=== PATIENT | female | born 1960 | race Caucasian/White ===

== ENCOUNTER 2020-08-04 04:55 | Emergency (ER) | payer BC, OTHER, SELFPAY ==
--- NOTE | ~2020-08-04 | XR_ITS ---
XR chest 1V portable DATE: 08/04/2020 06:27 INDICATION: Cough. Painful urination and constipation. TECHNIQUE: Portable AP chest on 07/27/2020 at 0609 hours COMPARISON: 06/22/2004 PA and lateral chest FINDINGS: Normal heart size. No hilar or mediastinal enlargement. There is suggestion of mild patchy infiltrate in the right lower lung; otherwise no pulmonary infiltr ate or consolidation, pleural effusion or pulmonary vascular congestion or pneumothorax is detected. IMPRESSION: Mild patchy infiltrate in the right lower lung Reviewed, dictated and finalized at location A. CUTTER OPERATOR
[2020-08-04 04:59] VITALS: BP 156/87; PULSE 103; RESP 18; TEMP 37.1; O2SAT 96
[2020-08-04 05:35] LABS: Glucose Point of Care 327 (65-105)
[2020-08-04] MEDS: ONDANSETRON INJ 4 MG/2 ML VIAL IV PUSH (05:37)
[2020-08-04 05:59] LABS: Basophils Percent Auto 0.5 % (0.2-1.2); Eosinophils Percent Auto 0.3 % (0-4.4); Hematocrit 41.4 % (37.0-47.0); Hemoglobin 14.4 g/dL (12.0-15.0); Immature Granulocyte Absolute 0.03 K/mm3 (0.00-0.031); Immature Granulocyte Percent A 0.4 % (0-0.5); Immature Platelet Fraction Pct 7.2 % (0.9-11.2); Lymphocytes Percent Auto 17.2 % (18.3-44.2); Mean Corpuscular HGB Conc 34.8 g/dl (32-36); Mean Corpuscular Hemoglobin 28.5 pg (26-34); Mean Corpuscular Volume 81.8 fl (80-100); Monocytes Absolute Auto 0.8 K/mm3 (0.1-0.6); Monocytes Percent Auto 10.6 % (2.6-8.5); Neutrophils Absolute Auto 5.4 K/mm3 (1.3-6.7); Platelet Count Result 151 k/mm3 (150-375); Red Blood Count 5.06 M/mm3 (4.2-5.4); Red Cell Distribution Width 12.6 % (11.5-14.5); White Blood Count 7.5 K/mm3 (4.5-10.0)
--- NOTE | 2020-08-04 06:01 | ECG_ITS ---
Measurements Intervals [place] Rate: 93 P: 45 VT: 121 QRS: 42 QRSD: 85 T: 53 QT: 343 QTc: 428 Interpretive Statements SINUS RHYTHM BASELINE ARTIFACT- I, II, AVR, AVL NORMAL ECG Electronically Signed On 08-04-2020 7:53:17 WOOD CRAFTER by Joselo Jules D.O.
[2020-08-04 06:02] VITALS: PULSE 91
[2020-08-04 06:06] LABS: Add Urine Microscopic? YES; Appearance Urine Cloudy (Clear); Bacteria Urine Trace /hpf; Bilirubin Urine Negative (Negative); Blood Urine 1+ (Negative); Color Urine Yellow (Yellow); Glucose Urine UA 3+ mg/dL (Negative); Ketones Urine 1+ mg/dL (Negative); Leukocyte Esterase Ur 2+ LEU/UL (Negative); Mucus Urine Rare /lpf; Nitrate Urine Negative (Negative); Protein Urine 1+ mg/dL (Negative); RBC Urine 0-2 /hpf (0-2); Specific Grav Ur 1.013 (1.001-1.035); Squamous Epithelial Cell Urine Moderate /hpf (Few); Urobilinogen Urine Negative mg/dL (<2.0); WBC Urine >75 /hpf
[2020-08-04 06:09] LABS: INR 0.9; Partial Thromboplastin Time 29.4 SECONDS (22.3-36.8); Prothrombin Time 13.1 Seconds (11.1-14.7)
[2020-08-04] MEDS: SODIUM CHLORIDE 0.9% IV 1,000 ML 999 ML IV CONT (06:09)
--- NOTE | 2020-08-04 06:11 | ED.GENADULT ---
HPI - General Adult General Chief complaint: Unspecified Stated complaint: multiple complaints Time Seen by Provider: 08/04/20 05:14 History of Present Illness HPI narrative: Patient is a 60-year-old female who presents the emergency department with chief complaint of generalized malaise. Patient reports he had an urgent care facility and had a urinalysis that showed that she had significant glucose in her urine did not do an Accu-Chek and told her she should probably be evaluated in the emergency department. Patient states that she has had generalized body aches states that she has had decreased appetite denies chest pain denies shortness of breath denies abdominal pain vomiting or diarrhea. Related Data Home Medications Medication Instructions Recorded Confirmed albuterol sulfate INHALATION 08/04/20 Allergies Allergy/AdvReac Type Severity Reaction Status Date / Time No Known Allergies Allergy Verified 08/04/20 05:03 Review of Systems Review of Systems: Narrative: CONSTITUTIONAL: Denies fever, chills, or sweats. EYES: Denies visual changes, redness, or discharge. ENT: Denies rhinorrhea, congestion, sore throat, or otalgia. CARDIOVASCULAR: Denies chest pain, palpitations, or edema. RESPIRATORY: Denies cough or dyspnea. GASTROINTESTINAL: Denies abdominal pain, nausea, vomiting, or diarrhea. GENITOURINARY: Denies dysuria or hematuria. SKIN: Denies rash or itching. MUSCULOSKELETAL: Denies back pain, joint pain, or myalgia. NEUROLOGIC: Denies headache, numbness, or weakness. PSYCHIATRIC: Denies anxiety or depression. A 10 system review of systems was completed on the patient and is negative except for what is stated in the HPI. Nursing and ancillary documentation was reviewed. PMFSH Comments Patient reports no significant past medical history Social history patient denies illicit drug use Exam Narrative: Exam Narrative: GENERAL: Well-appearing, well-nourished, and in no acute distress. HEAD: Normocephalic, atraumatic. EYES: PERRLA and EOMI. ENT: Nares clear, no rhinorrhea or epistaxis. Mucous membranes moist. NECK: Supple. CHEST: Clear to auscultation. No respiratory distress. HEART: Regular rate and rhythm. No murmur heard. Normal peripheral pulses. ABDOMEN: Soft, nontender, nondistended, normal active bowel sounds. EXTREMITIES: Normal range of motion. No edema. SKIN: Warm, dry, no rash. NEURO: No focal deficits. Alert and oriented x3. PSYCH: Normal mood and affect. Course Course Emergency Course: Patient's blood sugar came down to the 200s. Patient does have a urinary tract infection the patient was started on oral antibiotics and also started on Metformin. Patient will be referred to a primary care physician as she currently does not have a normal primary doctor. Vital Signs Vital signs: Vital Signs Temperature 37.1 C 08/04/20 04:59 Pulse Rate 103 H 08/04/20 04:59 Respiratory Rate 18 08/04/20 04:59 Blood Pressure 156/87 H 08/04/20 04:59 Pulse Oximetry 96 08/04/20 04:59 Temperature 37.1 C 08/04/20 04:59 Pulse Rate 92 08/04/20 06:47 Respiratory Rate 25 H 08/04/20 06:47 Blood Pressure 162/73 H 08/04/20 06:47 Pulse Oximetry 98 08/04/20 06:47 Medical Decision Making Vital Signs Vital Signs: Vital Signs Temperature 37.1 C 08/04/20 04:59 Pulse Rate 103 H 08/04/20 04:59 Respiratory Rate 18 08/04/20 04:59 Blood Pressure 156/87 H 08/04/20 04:59 Pulse Oximetry 96 08/04/20 04:59 Temperature 37.1 C 08/04/20 04:59 Pulse Rate 92 08/04/20 06:47 Respiratory Rate 25 H 08/04/20 06:47 Blood Pressure 162/73 H 08/04/20 06:47 Pulse Oximetry 98 08/04/20 06:47 Lab Data Result diagrams: 08/04/20 05:43 08/04/20 05:43 Labs: Lab Results 08/04/20 08/04/20 08/04/20 Range/Units 05:30 05:43 05:43 WBC 7.5 (4.5-10.0) K/mm3 RBC 5.06 (4.2-5.4) M/mm3 Hgb 14.4 (12.0-15.0) g/dL Hct 41.4 (37.0-47.0
[2020-08-04 06:18] LABS: Alanine Aminotransferase 21 U/L (4-35); Albumin Level 3.8 g/dL (3.5-5.1); Alkaline Phosphatase 136 U/L (38-126); Anion Gap 8 mmol/L (8-16); Aspartate Amino Transferase 27 U/L (14-36); Bilirubin,Total 0.9 mg/dL (0.2-1.3); Blood Urea Nitrogen 13 mg/dL (7-17); Calcium 9.1 mg/dL (8.4-10.2); Carbon Dioxide 31 mmol/L (22-30); Chloride 95 mmol/L (98-107); Estimated CRCL calculation 138 ml/min; Estimated Glomerular Filt Rate > 60; Glucose 325 mg/dL (65-105); Lipase 30 U/L (23-300); Potassium 4.2 mmol/L (3.4-5.0); Sodium 134 mmol/L (137-145)
--- NOTE | 2020-08-04 06:18 | PC.NURSE ---
Alessia @ [facility] alerted of pt . Will be at the hospital shortly to evaluate pt.
[2020-08-04 06:30] LABS: Troponin I 0.017 ng/mL (0.000-0.034)
[2020-08-04 06:47] VITALS: BP 158/78; BP 162/73; PULSE 88; PULSE 92; RESP 17; RESP 25; O2SAT 97; O2SAT 98
[2020-08-04 06:47] LABS: Glucose Point of Care 274 (65-105)
== END 2020-08-04 07:05 | disposition home or self-care (01) ==
PROVIDERS: Emergency Provider Emergency Medicine
DX: R73.9 Hyperglycemia, unspecified (principal); N30.00 Acute cystitis without hematuria
CPT/HCPCS: 36415; 71045; 80053; 81001; 82948; 83690; 84484; 85025; 85055; 85610; 85730; 87077; 87086; 87088; 87186; 93005; 96361; 96374; 99284; J2405; J7030

== ENCOUNTER → 2020-11-02 13:51 | Outpatient (CLI) | payer BC, OTHER, SELFPAY ==
--- NOTE | ~2020-11-02 | MM_ITS ---
EXAMINATION: MM screening mitul BI w rafia HISTORY: Screening mammogram TECHNIQUE: Craniocaudal and mediolateral oblique 3-D tomosynthesis images were obtained and synthetic 2-D images were generated. CAD analysis was submitted and interpreted. COMPARISON: No prior mammogram is available for comparison at this institution. BREAST PARENCHYMAL COMPOSITION: There are scattered areas of fibroglandular density. FINDINGS: There is no evidence of suspicious mass, calcification, or architectural distortion to sugg est malignancy in either breast. There has been no suspicious interval change. IMPRESSION: 1. No mammographic evidence of malignancy. 2. Recommend routine screening mammography in one year. BI-RADS Category 1: Negative Reviewed, dictated and finalized at location A. [employer]
== END ==
PROVIDERS: Visit Provider Emergency Medicine
DX: Z12.31 Encounter for screening mammogram for malignant neoplasm of breast (principal)
CPT/HCPCS: 77063; 77067

== ENCOUNTER 2020-11-06 07:34 | Outpatient (CLI) | payer BC, OTHER, SELFPAY ==
--- NOTE | ~2020-11-06 | US_ITS ---
EXAMINATION: US abdomen limited EXAM DATE: 11/06/2020 08:31 INDICATION: Elevated liver function tests. Cholecystectomy. TECHNIQUE: Multiple grayscale and Doppler images of the abdomen right upper quadrant were obtained (b y a technologist who performed the scan) and subsequently reviewed. Comparison is made to prior exami nation from 07/17/2004. FINDINGS: The pancreatic head and body are normal in appearance. The pancreatic tail is not visualized. The l iver has normal echogenicity and contour. There are no focal liver lesions identified. There is no evidence of intrahepatic biliary duct dilation. Portal venous flow was seen in the hepatopedal, nor mal direction and has normal Doppler waveform. No right-sided hydronephrosis. Common bile duct measures 5 mm, which is normal. The gallbladder fossa is unremarkable. IMPRESSION: 1. Unremarkable abdominal ultrasound exam. Reviewed, dictated and finalized at location A. CLOSER MECHANIC
--- NOTE | ~2020-11-06 | US_ITS ---
EXAMINATION: US art doppler w rickie FARIA EXAM DATE: 11/06/2020 08:24 INDICATION: Elevated liver enzymes, bilateral leg pain. TECHNIQUE: Segmental pressures and plethysmographic and Doppler waveforms of the brachial and lower e xtremity arteries were obtained. There is no prior study for comparison. FINDINGS: Right and left brachial artery pressures of 157 mm Hg and 164 mm Hg, respectively, are concordant (no rmal difference <= 30 mmHg). The right and left thigh-brachial pressure indices are could not obtain , 1.01, respectively (normal > 1.2). RIGHT LEG: The ankle-brachial index (SHAWNA) is 1.13 (normal >= 0.9-1). The great toe-brachial index (TBI) is 0.54 (normal >= 0.65). The lower extremity ratios, segmental pressure gradients as follows; Proximal superficial femoral artery:- Could not obtain ( mmHg). Distal superficial femoral artery: ----- Could not obtain ( mmHg). Popliteal: Could not obtain ( mmHg). Dorsalis pedis: 1.05 (172 mmHg). Posterior tibial: 1.13 (185 mmHg). (Normal gradients <= 20-30 mmHg between adjacent levels on the same leg or the same levels on the two legs). Arterial waveforms are biphasic. LEFT LEG: The ankle-brachial index (SHAWNA) is 1.04 (normal >= 0.9-1). The great toe-brachial index (TBI) is 0.44 (normal >= 0.65). The lower extremity ratios, segmental pressure gradients as follows; Proximal superficial femoral artery:- 1.01 (165 mmHg). Distal superficial femoral artery: ----- 1.13 (186 mmHg). Popliteal: Could not obtain ( mmHg). Dorsalis pedis: 0.82 (135 mmHg). Posterior tibial: 1.04 (171 mmHg). (Normal gradients <= 20-30 mmHg between adjacent levels on the same leg or the same levels on the two legs). Arterial waveforms are biphasic. IMPRESSION: 1. Right ankle-brachial index 1.13, normal. 2. Left ankle-brachial index 1.04, normal. 3. Segmental pressures as above. Reviewed, dictated and finalized at location A. AL SERVICES DIRECTOR
== END 2020-11-06 07:35 | disposition home or self-care (01) ==
LOC: ANHIMG 07:38
PROVIDERS: PCP Emergency Medicine; Visit Provider Emergency Medicine
DX: R74.01 Elevation of levels of liver transaminase levels (principal); M79.662 Pain in left lower leg; M79.661 Pain in right lower leg
CPT/HCPCS: 76705; 93923

== ENCOUNTER 2021-11-06 00:50 | Observation (INO) | payer BC, SELFPAY ==
[2021-11-06] VITALS (13 sets, daily range): BP systolic 91–160; BP diastolic 45–89; PULSE 73–115; RESP 16–22; TEMP 36.2–37.8; O2SAT 94–100
--- NOTE | ~2021-11-06 | XR_ITS ---
EXAMINATION: XR retrograde pyelo w/stent RT EXAM DATE: 11/06/2021 11:38 INDICATION: Right ureteral stent placement. Obstructive nephropathy. TECHNIQUE: Fluoroscopy used during XR retrograde pyelo w/stent RT performed by Dr. Mitchell Joyce MD, urologist. The radiologist Curtis Manrique M.D. dictating this report of the image(s) available wa s not present for the procedure. Total fluoroscopic time of 51 seconds. The DAP for this procedure was 0.83 mGym2. A total of 69 images sent to PACS from the exam. Cine run(s) available for review. Correlation is made to 11/06/2021. FINDINGS: Right distal ureteral stone was demonstrated on CT scan earlier today. Difficult to identi fy this on the mental health unit lead psychologist image, could be overlying the pubis. Right ureter was cannulated and injected. T here is moderate right-sided hydroureteronephrosis. A double-J ureteral stent was placed. Correlate with procedure note. Cholecystectomy clips. IMPRESSION: Fluoroscopy used during XR retrograde pyelo w/stent RT. Reviewed, dictated and finalized at location B. KEEPER
--- NOTE | ~2021-11-06 | CT_ITS ---
EXAMINATION: CT abdomen pelvis wo con DATE: 11/06/2021 03:02 INDICATION: Right flank pain. Nausea and vomiting. TECHNIQUE: Computed tomography (CT) of the abdomen and pelvis was performed without intravenous contr ast. Automated exposure control and iterative reconstruction technique were employed. Exam dose: 454 .30 mGy-cm total exam DLP. COMPARISON: 11/06/2020 Limited abdominal ultrasound examination FINDINGS: The lung bases are clear. Normal heart size. No pericardial or pleural effusion. Status post cholecystectomy. The liver, spleen, pancreas and adrenal glands are unremarkable. There is a 4.7 x 5.9 mm distal right ureteral calculus with prominent right hydroureteronephrosis. Th ere is right nephromegaly and perinephric stranding. There is a pinpoint nonobstructing right renal calculus. There is a pinpoint nonobstructing left renal calculus. No left ureteral calculus or hydroureteroneph rosis. The urinary bladder, uterus and adnexal areas are unremarkable. Normal appendix. Mild colonic diverticulosis; no CT evidence of diverticulitis. No bowel obstruction, bowel wall thickening, pneumatosis or intraperitoneal free air. Small fat-containing umbilical hernia. Included skeletal structures are unremarkable. IMPRESSION: 4.7 x 5.9 mm obstructing distal right ureteral calculus with prominent right hydroureter onephrosis, perinephric stranding Pinpoint nonobstructing left renal calculus Pinpoint nonobstructing right renal calculus Status post cholecystectomy Reviewed, dictated and finalized at Location A. Reviewed, dictated and finalized at location A. F COUNSELOR IMPRESSION: 4.7 x 5.9 mm obstructing distal right ureteral calculus with promi nent right hydroureteronephrosis, perinephric stranding Pinpoint nonobstructing left renal calculus Pinpoint nonobstructing right renal calculus Status post cholecystectomy
[2021-11-06 01:25] LABS: Basophils Absolute Auto 0.1 K/mm3 (0.0-0.1); Basophils Percent Auto 0.5 % (0.2-1.2); Eosinophils Percent Auto 0.2 % (0-4.4); Hematocrit 40.9 % (37.0-47.0); Hemoglobin 14.1 g/dL (12.0-15.0); Immature Granulocyte Absolute 0.02 K/mm3 (0.00-0.031); Immature Granulocyte Percent A 0.2 % (0-0.5); Lymphocytes Absolute Auto 0.88 K/mm3 (0.9-3.2); Lymphocytes Percent Auto 8.7 % (18.3-44.2); Mean Corpuscular HGB Conc 34.5 g/dl (32-36); Mean Corpuscular Hemoglobin 29.5 pg (26-34); Mean Corpuscular Volume 85.6 fl (80-100); Mean Platelet Volume 10.5 fl (7.4-10.4); Monocytes Absolute Auto 0.5 K/mm3 (0.1-0.6); Monocytes Percent Auto 4.8 % (2.6-8.5); Neutrophils Absolute Auto 8.7 K/mm3 (1.3-6.7); Neutrophils Percent Auto 85.6 % (45.5-73.1); Platelet Count Result 148 k/mm3 (150-375); Red Blood Count 4.78 M/mm3 (4.2-5.4); Red Cell Distribution Width 12.8 % (11.5-14.5); White Blood Count 10.2 K/mm3 (4.5-10.0)
[2021-11-06 01:31] LABS: Alanine Aminotransferase 17 U/L (4-35); Albumin Level 4.6 g/dL (3.5-5.1); Alkaline Phosphatase 59 U/L (38-126); Anion Gap 6 mmol/L (8-16); Aspartate Amino Transferase 28 U/L (14-36); Bilirubin,Total 0.6 mg/dL (0.2-1.3); Blood Urea Nitrogen 27 mg/dL (7-17); Calcium 9.2 mg/dL (8.4-10.2); Carbon Dioxide 29 mmol/L (22-30); Chloride 102 mmol/L (98-107); Estimated CRCL calculation 81 ml/min; Estimated Glomerular Filt Rate > 60; Glucose 172 mg/dL (65-110); Lipase 160 U/L (23-300); Potassium 4.2 mmol/L (3.4-5.0); Sodium 137 mmol/L (137-145)
--- NOTE | 2021-11-06 01:35 | ED.ABDPAIN ---
HPI - Abdominal Pain General Chief Complaint: Abdominal Pain <SINDY Negrete Last Filed: 11/06/21 04:31> Stated Complaint: Vomiting, Flank Pain <SINDY Negrete Last Filed: 11/06/21 04:31> Time Seen by Provider: 11/06/21 01:27 <SINDY Negrete Last Filed: 11/06/21 04:31> Source: patient <SINDY Negrete Last Filed: 11/06/21 04:31> Mode of arrival: ambulatory <SINDY Negrete Last Filed: 11/06/21 04:31> Limitations: no limitations <SINDY Negrtee Last Filed: 11/06/21 04:31> History of Present Illness HPI narrative: This is a 61-year-old female with PMHx of DMII and HTN, who presents to the ED with complaints of right lower back/flank pain that began at approximately 9 PM tonight. She reports the pain woke her from her sleep and is severe. Patient denies any radiation of the pain. She also reports having nausea and vomiting but denies any abdominal pain, fever, chills, diarrhea, constipation, hematuria, dysuria, or bladder incontinence, saddle anesthesia, weakness, history of kidney stones, sick contacts, or recent infectious symptoms. Patient has not taken anything for the pain tonight. <SINDY Negrete Last Filed: 11/06/21 04:31> Related Data Home Medications: Home Medications Medication Instructions Recorded Confirmed albuterol sulfate 1 puff INHALATION PRN PRN 08/04/20 11/06/21 lisinopril 30 mg PO DAILY 11/06/21 11/06/21 <SINDY Negrete Last Filed: 11/06/21 04:31> Allergies/Adverse Reactions: Allergies Allergy/AdvReac Type Severity Reaction Status Date / Time No Known Allergies Allergy Verified 08/04/20 05:03 <SINDY Negrete Last Filed: 11/06/21 04:31> Review of Systems Review of Systems: CONSTITUTIONAL: Denies fever, chills, or sweats. ENT: Denies rhinorrhea, congestion, sore throat, or otalgia. CARDIOVASCULAR: Denies chest pain. RESPIRATORY: Denies cough or dyspnea. GASTROINTESTINAL: Reports nausea/vomiting. Denies abdominal pain, nausea, vomiting, constipation, diarrhea, bowel/bladder incontinence. GENITOURINARY: Denies dysuria or hematuria. SKIN: Denies rash or itching. MUSCULOSKELETAL: Reports right lower back/flank pain. Denies joint pain, or myalgia. NEUROLOGIC: Denies headache, numbness, or weakness. <Leticia Porter PA-C - Last Filed: 11/06/21 04:31> All systems reviewed & are unremarkable except as noted in HPI and below <Leticia Porter PA-C - Last Filed: 11/06/21 04:31> PMFSH Past Medical History Medical History: Medical History (Updated 11/06/21 @ 04:12 by Leticia Porter PA-C) Diabetes Hypertension <Leticia Porter PA-C - Last Filed: 11/06/21 04:31> Surgical History Surgical History: Surgical History (Updated 11/06/21 @ 04:06 by Leticia Porter PA-C) No pertinent past surgical history <Leticia Porter PA-C - Last Filed: 11/06/21 04:31> Family History Family History: Family History (Updated 11/06/21 @ 05:52 by Leta Turner RN) Father Acute myocardial infarction Grandparent Acute myocardial infarction Sibling Diabetes mellitus Grandparent Diabetes mellitus <Leticia Porter PA-C - Last Filed: 11/06/21 04:31> Social History Social History: Social History (Updated 11/06/21 @ 04:06 by Leticia Porter PA-C) Smoking status: Never smoker Alcohol intake: current Drinks per week: 1 Substance use: current Substance use type: marijuana Last use: 11/05/21 Spiritual care concerns: No <Leticia Porter PA-C - Last Filed: 11/06/21 04:31> Exam Narrative: GENERAL: Well appearing, well-nourished, non-toxic, restless in ED bed. HEAD: Normocephalic, atraumatic. NECK: Supple. No adenopathy, no masses. RESPIRATORY: Airway patent, respirations nonlabored. Clear to auscultation bilaterally, no rales, rhonchi, wheezing. CARDIOVASCULAR: Regular rate and rhythm without murmurs, rubs, or gallops. ABDOMINAL: Soft, nontender, nondisten
[2021-11-06] MEDS: SODIUM CHLORIDE 0.9% IV 1,000 ML 999 ML IV CONT (02:21)
[2021-11-06] MEDS: KETOROLAC 30 MG/ML VIAL (*BKC) IV PUSH (02:21)
[2021-11-06] MEDS: ONDANSETRON INJ 4 MG/2 ML VIAL IV PUSH (02:22)
[2021-11-06 02:44] LABS: Add Urine Microscopic? YES; Appearance Urine Cloudy (Clear); Bacteria Urine Trace /hpf; Bilirubin Urine Negative (Negative); Blood Urine 2+ (Negative); Calcium Oxalate Crystals Urine Present /hpf; Color Urine Yellow (Yellow); Glucose Urine UA Negative (Negative); Ketones Urine 1+ mg/dL (Negative); Leukocyte Esterase Ur 2+ LEU/UL (Negative); Mucus Urine Rare /lpf; Nitrate Urine Positive (Negative); Protein Urine 1+ mg/dL (Negative); RBC Urine >75 /hpf (0-2); Specific Grav Ur 1.018 (1.001-1.035); Squamous Epithelial Cell Urine Rare /hpf (Few); Urobilinogen Urine Negative mg/dL (<2.0); WBC Urine >75 /hpf
[2021-11-06 05:17] LABS: Lactic Acid Reflex 1.2 mmol/L (0.7-2.1)
[2021-11-06 05:22] LABS: Glucose Point of Care 142 mg/dl (65-105)
--- NOTE | 2021-11-06 05:39 | ADMGEN ---
This patient, Yodit Owens, was admitted to Medical Room 254-01. Patient/family oriented to hospital policies and general routines including ID bracelet, bed and alarms, visiting hours, pain management, procedures, bathroom and other care routines, personal items, smoking policy, room service/diet, and visiting hours. Information on how to activate the Rapid Response Team has been discussed. Patient/Family are encouraged to report perceived risks to care and to ask questions if they do not understand what they are told or what they should do.
--- NOTE | 2021-11-06 07:02 | WPDURCON ---
Assessment and Plan Assessment and plan (1) Ureteral calculus, right: Code(s): N20.1 - Calculus of ureter Status: Acute (2) Hydronephrosis: Qualifiers: Hydronephrosis type: unspecified Qualified Code(s): N13.30 - Unspecified hydronephrosis Code(s): N13.30 - Unspecified hydronephrosis Status: Acute (3) Urinary tract infection: Code(s): N39.0 - Urinary tract infection, site not specified Status: Acute Assessment and Plan: Cystoscopy with right ureteral stent placement; possible right ureteroscopy with stone extraction Risk of ureteral injury and sepsis has been discussed with patient. She is aware that we may not be able to attempt endoscopic stone extraction today. Urology Consult Note HPI Date Seen: 11/06/21 Requesting Physician: Alden Messer MD Primary Care Provider: Alex Nye MD Consult Narrative Narrative: Yodit Owens is a 61 year old female, without prior history of urolithiasis, presents to the ER with acute right flank pain radiating to her right lower quadrant. This been associated nausea vomiting but she denies fevers/chills, irritable voiding or gross hematuria. Urinalysis suggest a urinary tract infection. CT imaging demonstrates an obstructing 5-6 mm right distal ureteral calculus. She has been admitted for pain control and has been started on IV ceftriaxone. Review of Systems Cardiovascular: Cardiovascular: Denies chest pain, Denies lightheadedness, Denies palpitations and Denies dyspnea Respiratory: Respiratory: Denies dyspnea Gastrointestinal: Gastrointestinal: Denies diarrhea, Denies nausea and Denies vomiting Genitourinary: Genitourinary: Denies hematuria and Denies dysuria Endocrine: Endocrine: Denies palpitations [facility] Past Medical History Medical History Diabetes Hypertension Surgical History Surgical History No pertinent past surgical history Family History Family History Father Acute myocardial infarction Grandparent Acute myocardial infarction Sibling Diabetes mellitus Grandparent Diabetes mellitus Social History Social History Smoking status: Never smoker Alcohol intake: current Drinks per week: 1 Substance use: current Substance use type: marijuana Last use: 11/05/21 Spiritual care concerns: No Meds Home Medications and Allergies Home Medications Medication Instructions Recorded Confirmed Type albuterol sulfate 1 puff INHALATION PRN PRN 08/04/20 11/06/21 History metformin 500 mg PO BID #60 tablet 08/04/20 11/06/21 Rx lisinopril 30 mg PO DAILY 11/06/21 11/06/21 History Allergies Allergy/AdvReac Type Severity Reaction Status Date / Time No Known Allergies Allergy Verified 08/04/20 05:03 Vital Signs Vital Signs - 24 hr 11/06/21 00:56 11/06/21 04:53 Temperature 98.7 F Pulse Rate 73 96 Respiratory Rate 19 16 Blood Pressure 150/65 H 129/56 L Pulse Oximetry 100 98 Exam Const: General: no acute distress Resp: Effort & Inspection: normal respiratory effort GI: Inspection: non-distended GI Palp: No abdominal tenderness and No Guarding due to palpation present (GI) Auscultation: normal bowel sounds Results Labs CBC & Chem 7: 11/06/21 01:14 11/06/21 01:14 Labs: Short CBC 11/06/21 Range/Units 01:14 WBC 10.2 H (4.5-10.0) K/mm3 Hgb 14.1 (12.0-15.0) g/dL Hct 40.9 (37.0-47.0) % Plt Count 148 L (150-375) k/mm3 BMP 11/06/21 01:14 Sodium 137 Potassium 4.2 Chloride 102 Carbon Dioxide 29 BUN 27 H D Creatinine 0.60 L Glucose 172 H Calcium 9.2 Liver Function 11/06/21 Range/Units 01:14 Total Bilirubin 0.6 (0.2-1.3) mg/dL AST 28 (14-36) U/L ALT 17 (4-35)
[2021-11-06 08:06] LABS: Glucose Point of Care 111 mg/dl (65-105)
--- NOTE | 2021-11-06 10:07 | PM.IMHP ---
H&P: HPI History of Present Illness Date/Time: 11/06/21 10:07 Patient is a 61-year-old female with a past medical history of diabetes, hypertension, E coli UTI. She presented to the emergency department due to acute right flank pain radiating to her right lower quadrant. The patient reported associated nausea, vomiting, but denies fever, chills and urinary frequency or hematuria. While in the emergency department labs and imaging were obtained. Urinalysis revealed a urinary tract infection. CT imaging demonstrated an obstructing 5-6 mm right distal ureteral calculus. Labs in the emergency department was significant for WBC of 10.2, hemoglobin 14.1, hematocrit 40.9, platelet 148, sodium 137, potassium 4.2, creatinine 0.6, BUN 27 and a glucose of 172. Normal LFTs. She was admitted for pain control, IV Rocephin and urology consult for the obstructing stone. Chief Complaint: right flank pain Review of Systems Review of Systems: All systems reviewed & are unremarkable except as noted in HPI and below PMFSH Past Medical History Medical History Asthma Diabetes Hypertension Surgical History Surgical History No pertinent past surgical history Family History Family History Father Acute myocardial infarction Grandparent Acute myocardial infarction Sibling Diabetes mellitus Grandparent Diabetes mellitus Social History Social History Smoking status: Never smoker Alcohol intake: current Drinks per week: 1 Substance use: current Substance use type: marijuana Last use: 11/05/21 Gender identity (if verbalized by the patient): Female Sexual Orientation (if Verbalized by the Patient): Straight or Heterosexual Spiritual care concerns: No Meds Home Medications and Allergies Home Medications Medication Instructions Recorded Confirmed Type albuterol sulfate 1 puff INHALATION PRN PRN 08/04/20 11/06/21 History metformin 500 mg PO BID #60 tablet 08/04/20 11/06/21 Rx lisinopril 30 mg PO DAILY 11/06/21 11/06/21 History Allergies Allergy/AdvReac Type Severity Reaction Status Date / Time No Known Allergies Allergy Verified 08/04/20 05:03 Vital Signs Vital Signs - 24 hr 11/06/21 00:56 11/06/21 04:53 11/06/21 08:40 Temperature 98.7 F 98.9 F Pulse Rate 73 96 99 Respiratory Rate 19 16 18 Blood Pressure 150/65 H 129/56 L 120/45 L Pulse Oximetry 100 98 96 Exam Narrative: GENERAL: Well appearing, well-nourished, non-toxic, restless in ED bed. HEAD: Normocephalic, atraumatic. NECK: Supple. No adenopathy, no masses. RESPIRATORY: Airway patent, respirations nonlabored. Clear to auscultation bilaterally, no rales, rhonchi, wheezing. CARDIOVASCULAR: Regular rate and rhythm without murmurs, rubs, or gallops. ABDOMINAL: Soft, nontender, nondistended, no hepatosplenomegaly. Normoactive BS. Mild R CVA tenderness to percussion. MUSCULOSKELETAL: Moves all extremities. Mild tenderness to palpation of right lower back/flank. No midline lumbar spinal tenderness or paraspinal muscle tenderness. Strength/ROM intact without gross deformities or TTP. No edema. No calf tenderness. SKIN: Warm, dry, normal color. No rashes. NEURO: A&O X3. Speech clear. Cranial nerves II-XII grossly intact. Steady gait. No ataxic movements. PSYCHIATRIC: Appropriate mood and affect. Normal interaction. H&P: Results Labs Labs: Short CBC 11/06/21 Range/Units 01:14 WBC 10.2 H (4.5-10.0) K/mm3 Hgb 14.1 (12.0-15.0) g/dL Hct 40.9 (37.0-47.0) % Plt Count 148 L (150-375) k/mm3 BMP 11/06/21 01:14 Sodium 137 Potassium 4.2 Chloride 102 Carbon Dioxide 29 BUN 27 H D Creatinine 0.60 L Glucose 172 H Calcium 9.2 Liver Function 11/06/21 Range/Units 01:14 Total Bilirub
[2021-11-06] MEDS: LACTATED RINGERS 1,000 ML 30 ML IV CONT (11:00)
--- NOTE | 2021-11-06 11:04 | WPDANESEPPF ---
Anes - Initial Pre Proc Eval Procedure: Operation Date: 11/06/21 10:45 Proposed Procedures p Cystoscopy, Right Stent Placement, Possible Ureteroscopy with Stone Extraction - Mitchell Joyce MD Date/Time: 11/06/21 11:04 Surgeon: Alden Messer MD Pre Op Diagnosis: right distal ureterolithiasis Patient Data Age: 61 Gender: F Height: 1.7 m Weight: 74.09 kg Last Vital Signs Temp 37.2 C 11/06/21 08:40 Pulse 99 11/06/21 08:40 Resp 18 11/06/21 08:40 BP 120/45 L 11/06/21 08:40 Pulse Ox 96 11/06/21 08:40 Allergies Allergy/AdvReac Type Severity Reaction Status Date / Time No Known Allergies Allergy Verified 08/04/20 05:03 Home Medications Medication Instructions Recorded Confirmed Type albuterol sulfate 1 puff INHALATION PRN PRN 08/04/20 11/06/21 History metformin 500 mg PO BID #60 tablet 08/04/20 11/06/21 Rx lisinopril 30 mg PO DAILY 11/06/21 11/06/21 History Laboratory Tests 11/06/21 11/06/21 11/06/21 01:14 01:14 02:28 WBC 10.2 K/mm3 H K/mm3 (4.5-10.0) RBC 4.78 M/mm3 M/mm3 (4.2-5.4) Hgb 14.1 g/dL g/dL (12.0-15.0) Hct 40.9 % % (37.0-47.0) MCV 85.6 fl fl (80-100) MCH 29.5 pg pg (26-34) MCHC 34.5 g/dl g/dl (32-36) RDW 12.8 % % (11.5-14.5) Plt Count 148 k/mm3 L k/mm3 (150-375) MPV 10.5 fl H fl (7.4-10.4) Immature Gran % (Auto) 0.2 % % (0-0.5) Neut % (Auto) 85.6 % H % (45.5-73.1) Lymph % (Auto) 8.7 % L % (18.3-44.2) Rhea % (Auto) 4.8 % % (2.6-8.5) Eos % (Auto) 0.2 % % (0-4.4) Baso % (Auto) 0.5 % % (0.2-1.2) Lymph # (Auto) 0.88 K/mm3 L K/mm3 (0.9-3.2) Rhea # (Auto) 0.5 K/mm3 K/mm3 (0.1-0.6) Eos # (Auto) 0.0 K/mm3 K/mm3 (0-0.3) Baso # (Auto) 0.1 K/mm3 K/mm3 (0.0-0.1) Abs Immat Gran (auto) 0.02 K/mm3 K/mm3 (0.00-0.031) Absolute Neuts (auto) 8.7 K/mm3 H K/mm3 (1.3-6.7) Absolute Nucleated RBC 0.0 K/mm3 K/mm3 (0.0-0.012) Nucleated RBC % 0.0 % % (0.0-0.2) Sodium 137 mmol/L mmol/L (137-145) Potassium 4.2 mmol/L mmol/L (3.4-5.0) Chloride 102 mmol/L mmol/L (98-107) Carbon Dioxide 29 mmol/L mmol/L (22-30) Anion Gap 6 mmol/L L mmol/L (8-16) BUN 27 mg/dL H D mg/dL (7-17) Creatinine 0.60 mg/dL L mg/dL (0.7-1.0) Estim Creat Clear Calc 81 ml/min ml/min Estimated GFR > 60 (59 - ) Glucose 172 mg/dL H mg/dL (65-110) POC Capillary Glucose Lactic Acid Calcium 9.2 mg/dL mg/dL (8.4-10.2) Total Bilirubin 0.6 mg/dL mg/dL (0.2-1.3) AST 28 U/L U/L (14-36) ALT 17 U/L U/L (4-35) Alkaline Phosphatase 59 U/L U/L (38-126) Total Protein 7.0 g/dL g/dL (6.3-8.2) Albumin 4.6 g/dL g/dL (3.5-5.1) Lipase 160 U/L U/L (23-300) Urine Color Yellow (Yellow) Urine Appearance Cloudy H (Clear) Urine pH 5.0 (5.0-9.0) Ur Specific [place] 1.018 (1.001-1.035) Urine Protein 1+ mg/dL H mg/dL (Negative) Urine Glucose (UA) Negative mg/dL mg/dL (Negative) Urine Ketones 1+ mg/dL H mg/dL (Negative) Ur Blood (Man) 2+ H (Negative) Urine Nitrate Positive H (Negative) Urine Bilirubin Negative (Negative) Urine Urobilinogen Negative mg/dL mg/dL (<2.0) Leukocyte Esterase Rfl 2+ NATACHA/UL H NATACHA/UL (Negative) Urine RBC >75 /hpf H /hpf (0-2) Urine WBC >75 /hpf H /hpf Ur Squamous Epith Cells Rare /hpf /hpf (Few) Calcium Oxalate Crystal Present /hpf /hpf (None) Urine Bacteria Trace /hpf /hpf Urine Mucus Rare /lpf /lpf
--- NOTE | 2021-11-06 11:12 | WPDHPUPDATE1 ---
History and Physical Update Update Date/Time: 11/06/21 11:12 History and Physical has been reviewed, including an updated exam of the patient. There are NO changes in the patient's condition. Risks, benefits, and alternatives have been discussed and questions answered. Patient agrees to proceed with procedure.
[2021-11-06 11:43] LABS: Glucose Point of Care 123 mg/dl (65-105)
--- NOTE | 2021-11-06 11:44 | W.PM.PROC2 ---
Procedure Note - Detailed Date of Procedure 11/06/21 Pre-op Diagnosis Right distal ureterolithiasis Post-op Diagnosis same Procedure Performed Cystoscopy, right ureteroscopy with stone extraction, right ureteral stent placement Surgeon Mitchell Joyce MD Anesthesia general Description of Procedure The patient was brought to the operative suite where she is prepped and draped in a routine sterile fashion while in the dorsal lithotomy position after the uneventful induction of a general LMA anesthetic. A 19F rigid cystoscope was placed in the bladder. The patient had no evidence of urethral stricture or bladder neck contracture. The bladder mucosa was endoscopically normal without hyperemia or neoplasm. There was a single, orthotopic ureteral orifice bilaterally. A 0.035 glidewire was advanced into the right renal pelvis under fluoroscopy. The distal ureter was dilated with an 8F/10F ureteral dilator. Ureteroscopy was undertaken with a short tapered semi-rigid ureteroscope. With ureteroscopy I was able to extract the stone using a 1.9F Escape basket. Due to the extent of this manipulation and her intercurrent UTI I did place a 4.8F double-J ureteral stent. The proximal coil of the stent was confirmed to be in the renal pelvis and the distal coil in the bladder. The patient's bladder was emptied and she was taken to the recovery room having tolerated this procedure well. Estimated Blood Loss 0 Drains Yes Packing No Pathology none sent Complications No immediate complications Condition stable Disposition PACU
--- NOTE | 2021-11-06 12:56 | PC.NURSE ---
Returned from OR per stretcher. Report received from Jessica ROBERTS.
[2021-11-06 17:44] LABS: Glucose Point of Care 160 mg/dl (65-105)
[2021-11-06 20:20] LABS: Glucose Point of Care 134 mg/dl (65-105)
[2021-11-07 05:38] LABS: Basophils Percent Auto 0.3 % (0.2-1.2); Eosinophils Percent Auto 0.4 % (0-4.4); Hematocrit 33.4 % (37.0-47.0); Hemoglobin 11.6 g/dL (12.0-15.0); Immature Granulocyte Absolute 0.04 K/mm3 (0.00-0.031); Immature Granulocyte Percent A 0.4 % (0-0.5); Immature Platelet Fraction Pct 3.4 % (0.9-11.2); Lymphocytes Absolute Auto 1.11 K/mm3 (0.9-3.2); Lymphocytes Percent Auto 11.8 % (18.3-44.2); Mean Corpuscular HGB Conc 34.7 g/dl (32-36); Mean Corpuscular Hemoglobin 29.3 pg (26-34); Mean Corpuscular Volume 84.3 fl (80-100); Mean Platelet Volume 10.5 fl (7.4-10.4); Monocytes Absolute Auto 0.6 K/mm3 (0.1-0.6); Monocytes Percent Auto 6.3 % (2.6-8.5); Neutrophils Absolute Auto 7.6 K/mm3 (1.3-6.7); Neutrophils Percent Auto 80.8 % (45.5-73.1); Platelet Count Result 94 k/mm3 (150-375); Red Blood Count 3.96 M/mm3 (4.2-5.4); Red Cell Distribution Width 13.2 % (11.5-14.5); White Blood Count 9.4 K/mm3 (4.5-10.0)
[2021-11-07 05:58] LABS: Alanine Aminotransferase 16 U/L (4-35); Albumin Level 3.4 g/dL (3.5-5.1); Alkaline Phosphatase 56 U/L (38-126); Anion Gap 1 mmol/L (8-16); Aspartate Amino Transferase 24 U/L (14-36); Bilirubin,Total 0.7 mg/dL (0.2-1.3); Blood Urea Nitrogen 20 mg/dL (7-17); Calcium 8.2 mg/dL (8.4-10.2); Carbon Dioxide 30 mmol/L (22-30); Chloride 103 mmol/L (98-107); Estimated CRCL calculation 81 ml/min; Estimated Glomerular Filt Rate > 60; Glucose 109 mg/dL (65-110); Potassium 3.6 mmol/L (3.4-5.0); Sodium 134 mmol/L (137-145)
[2021-11-07 06:00] VITALS: BP 134/56; PULSE 82; RESP 20; TEMP 36.5; O2SAT 98
--- NOTE | 2021-11-07 07:19 | WPDUROPN2 ---
Progress Note: A&P Assessment and Plan (1) Ureteral calculus, right: Code(s): N20.1 - Calculus of ureter Status: Acute Assessment and Plan: Discharge on oral antibiotics x1 week today is fine with me. Follow-up next weeks for stent Subjective Subjective Date/Time Seen: 11/07/21 07:19 Feeling much better, tolerating stent well Review of Systems Cardiovascular: Cardiovascular: Denies chest pain, Denies lightheadedness, Denies palpitations and Denies dyspnea Respiratory: Respiratory: Denies dyspnea Gastrointestinal: Gastrointestinal: Denies diarrhea, Denies nausea and Denies vomiting Genitourinary: Genitourinary: Denies hematuria and Denies dysuria Endocrine: Endocrine: Denies palpitations Exam Const: General: no acute distress Resp: Effort & Inspection: normal respiratory effort GI: Inspection: non-distended GI Palp: No abdominal tenderness and No Guarding due to palpation present (GI) Auscultation: normal bowel sounds Objective Data Vital Signs Vital Signs: Vital Signs - 24 hr 11/06/21 08:40 11/06/21 11:40 11/06/21 11:55 Temperature 98.9 F 98.5 F Pulse Rate 99 92 107 H Respiratory Rate 18 16 20 Blood Pressure 120/45 L 91/52 L 139/66 Pulse Oximetry 96 100 100 11/06/21 12:05 11/06/21 12:10 11/06/21 12:25 Temperature Pulse Rate 111 H 115 H Respiratory Rate 20 20 Blood Pressure 160/87 H 114/49 L Pulse Oximetry 97 98 98 11/06/21 12:40 11/06/21 13:17 11/06/21 13:35 Temperature 100.0 F H 98.4 F Pulse Rate 106 H 113 H 108 H Respiratory Rate 22 H 16 16 Blood Pressure 149/89 H 133/63 111/54 L Pulse Oximetry 98 95 95 11/06/21 15:00 11/06/21 22:00 11/07/21 06:00 Temperature 98.1 F 97.1 F L 97.7 F Pulse Rate 104 H 88 82 Respiratory Rate 18 20 20 Blood Pressure 119/49 L 114/52 L 134/56 L Pulse Oximetry 94 98 98 Intake/Output Intake/Output: Intake & Output 11/04/21 11/05/21 11/06/21 11/07/21 23:59 23:59 23:59 23:59 Intake Total 2775 700 Output Total 525 800 Balance 2250 -100 Meds/Results Medications: Active Medications Generic Name Dose Route Start Last Admin Trade Name Anne PRN Reason Stop Dose Admin Hydrocodone Bitart/Acetaminophen 1 tab 11/06/21 17:49 Hydrocodone/Acetaminophen (*Crx) 5-325 Mg Tablet PO Q4H PRN Pain Rated 4-6 Albuterol 1 puff 11/06/21 10:12 Albuterol Sulfate (*Sp) Aerosol 1 Puff INHALATION 12/06/21 18:10 PRN PRN Shortness Of Breath Cefdinir 300 mg 11/07/21 09:00 Cefdinir 300 Mg Capsule PO Q12HR [facility] Dextrose 12.5 gm 11/06/21 04:12 Dextrose 50% 25 Gm/50 Ml Syringe IV PUSH 12/06/21 18:10 PRN PRN Hypoglycemia Protocol Glucagon 1 mg 11/06/21 04:12 Glucagon For Inj 1 Mg Vial IM 12/06/21 18:10 PRN PRN Hypoglycemia Protocol Glucose 15 gm 11/06/21 04:12 Glucose Oral Gel 15 Gm Of Glucse In 37.5 Gm Tube PO 12/06/21 18:10 PRN PRN Hypoglycemia Protocol Dextrose 1,000 mls @ 100 mls/hr 11/06/21 04:12 Dextrose 5% 1,000 Ml IVPB 12/06/21 18:10 PRN PRN Hypoglycemia Protocol Insulin Aspart 2 - 5 units 11/06/21 12:00 11/06/21 19:50 Insulin Aspart (*Bkc) 100 Units/Ml SUB-Q 12/06/21 18:10 Not Given TIDWM [facility] Protocol Lisinopril 30 mg 11/07/21 09:00 Lisinopril 10 Mg Tablet PO DAILY [facility] Ondansetron HCl 4 mg 11/06/21 04:12 Ondansetron Inj 4 Mg/2 Ml Vial IV PUSH 12/06/21 18:11 Q4H PRN Nausea Radiology Results: ITS Impressions Abdomen/Pelvis CT 11/06/21 08:31 IMPRESSION: 4.7 x 5.9 mm obstructing distal right ureteral calculus with prominent right hydroureteronephrosis, perinephric stranding Pinpoint nonobstructing left renal calculus Pinpoint nonobstructing right renal calculus Status post cholecystectomy Retrograde Pyelogram 11/06/21 15:09 IMPRESSION: Fluoroscopy used during XR retrograde pyelo w/stent RT. Labs Labs: Laboratory Results
[2021-11-07 07:31] LABS: Glucose Point of Care 88 mg/dl (65-105)
--- NOTE | 2021-11-07 08:52 | PC.NURSE ---
missing 0900 lisinopril, will give when received from pharmacy
[2021-11-07] MEDS: CEFDINIR 300 MG CAPSULE PO (08:54)
--- NOTE | 2021-11-07 09:14 | WPDANESPN ---
Anes - Prog Note Post-Op Date/Time: 11/07/21 09:14 Cardiovascular status: normal Respiratory status: normal Airway patency: baseline Mental status: baseline Post-Op hydration status: normal Vital Signs: Last Vital Signs Temp 36.5 C 11/07/21 06:00 Pulse 82 11/07/21 06:00 Resp 20 11/07/21 06:00 BP 134/56 L 11/07/21 06:00 Pulse Ox 98 11/07/21 06:00 Pain Score (VAS): 0 I/O: Intake & Output 11/06/21 11/07/21 11/07/21 23:59 07:59 15:59 Intake Total 775 1060 Output Total 525 800 Balance 250 260 Laboratory Tests 11/07/21 05:18 11/07/21 05:18 11/06/21 11/06/21 11/06/21 11:41 16:36 20:17 WBC RBC Hgb Hct MCV MCH MCHC RDW Plt Count MPV Immature Gran % (Auto) Neut % (Auto) Lymph % (Auto) [place] % (Auto) Eos % (Auto) Baso % (Auto) Lymph # (Auto) [place] # (Auto) Eos # (Auto) Baso # (Auto) Abs Immat Gran (auto) Absolute Neuts (auto) Absolute Nucleated RBC Nucleated RBC % % Immature Plt Fraction Sodium Potassium Chloride Carbon Dioxide Anion Gap BUN Creatinine Estim Creat Clear Calc Estimated GFR Glucose POC Capillary Glucose 123 H 160 H 134 H Calcium Total Bilirubin AST ALT Alkaline Phosphatase Total Protein Albumin 11/07/21 11/07/21 11/07/21 05:18 05:18 07:26 WBC 9.4 RBC 3.96 L Hgb 11.6 L Hct 33.4 L MCV 84.3 MCH 29.3 MCHC 34.7 RDW 13.2 Plt Count 94 L MPV 10.5 H Immature Gran % (Auto) 0.4 Neut % (Auto) 80.8 H Lymph % (Auto) 11.8 L [place] % (Auto) 6.3 Eos % (Auto) 0.4 Baso % (Auto) 0.3 Lymph # (Auto) 1.11 [place] # (Auto) 0.6 Eos # (Auto) 0.0 Baso # (Auto) 0.0 Abs Immat Gran (auto) 0.04 H Absolute Neuts (auto) 7.6 H Absolute Nucleated RBC 0.0 Nucleated RBC % 0.0 % Immature Plt Fraction 3.4 Sodium 134 L Potassium 3.6 Chloride 103 Carbon Dioxide 30 Anion Gap 1 L BUN 20 H Creatinine 0.60 L Estim Creat Clear Calc 81 Estimated GFR > 60 Glucose 109 POC Capillary Glucose 88 Calcium 8.2 L Total Bilirubin 0.7 AST 24 ALT 16 Alkaline Phosphatase 56 Total Protein 6.0 L Albumin 3.4 L Microbiology 11/06/21 04:51 Blood Blood Culture - Preliminary Post-procedural complaints: none Patient Feedback: Patient satisfied with anesthetic care.
--- NOTE | 2021-11-07 10:15 | PM.DS ---
DS: Admitting Diagnosis Discharge Date 11/07/2021 Admitting Diagnosis Calculus of ureter Hydronephrosis UTI Diabetes mellitus Hypertension DS: Discharge Diagnosis Discharge Diagnosis (1) Ureteral calculus, right: Code(s): N20.1 - Calculus of ureter Status: Acute Assessment and Plan: as below (2) Hydronephrosis: Qualifiers: Hydronephrosis type: unspecified Qualified Code(s): N13.30 - Unspecified hydronephrosis Code(s): N13.30 - Unspecified hydronephrosis Status: Acute Assessment and Plan: 2/2 Ureteral Calculus Cystoscopy with right ureteral stent placement; possible right ureteroscopy with stone extraction performed by urology Urology discussed risk of ureteral injury and sepsis has been discussed with patient. Patient follow-up with Urology within 1 week for stent removal (3) Urinary tract infection: Code(s): N39.0 - Urinary tract infection, site not specified Status: Acute Assessment and Plan: CBC, CMP, UA, reviewed Follow urine cultures and titrate antibiotics accordingly Follow temp curve, cultures, WBC, and VS Ceftriaxone 1g IV daily, patient transitioned to cefdinir 300 mg b.i.d. she will be discharged with antibiotics for 1 week Follow blood cultures, negative to date (4) Diabetes: Qualifiers: Diabetes mellitus complication status: without complication Diabetes mellitus shelter insulin use: without shelter use Diabetes mellitus type: type 2 Qualified Code(s): E11.9 - Type 2 diabetes mellitus without complications Code(s): E11.9 - Type 2 diabetes mellitus without complications Status: Acute Assessment and Plan: Insulin Lispro sliding scale, Accu-checks qAc and HS and Hold oral hypoglycemics (5) Hypertension: Code(s): I10 - Essential (primary) hypertension Status: Acute Assessment and Plan: Resume antihypertensives DS: Summary Hospital Course Reason for hospitalization: Right ureteral calculus with hydronephrosis Hospital Course: 61-year-old female with a past medical history of diabetes, hypertension, E coli UTI. She presented to the emergency department due to acute right flank pain radiating to her right lower quadrant. The patient reported associated nausea, vomiting, but denies fever, chills and urinary frequency or hematuria. While in the emergency department labs and imaging were obtained. Urinalysis revealed a urinary tract infection. CT imaging demonstrated an obstructing 5-6 mm right distal ureteral calculus. Labs in the emergency department was significant for WBC of 10.2, hemoglobin 14.1, hematocrit 40.9, platelet 148, sodium 137, potassium 4.2, creatinine 0.6, BUN 27 and a glucose of 172. Normal LFTs. During the patient's hospitalization urology was consulted for the obstructing stone to the right urethral she created hydronephrosis. Patient went to the OR-[facility] note, she had IV pain management, IV Rocephin initiated due to the urinary tract infection found in the emergency department which was transitioned to cefdinir 300 mg b.i.d. x7 days. After surgery intervention the patient reported she felt significantly better. She was kept overnight for observation. No acute events reported overnight by the RN for the patient. Today the patient will be discharged to follow-up with her primary care provider within 1 week and Neurology within 1 week. Status at Discharge Cognitive/behavioral status at discharge: Alert and oriented x4 Functional status at discharge: independent ambulation Overall status at discharge: patient is back to baseline Time Spent with Patient Time attestation: Total time spent providing and/or coordinating discharge services: Time spent: Greater than 30 minutes Exam Narrative: GENERAL: Well appearing, well-nourished, non-toxic, restless in ED bed. HEAD: Normocephalic, atraumatic. NECK: Supple. No adenopathy, no masses. RESPIRATORY: Airway patent, res
--- NOTE | 2021-11-07 12:49 | PC.NURSE ---
On 11/07/21, the student, [Richardson Huertas], provided care and completed [facility] documentation on this patient. I have reviewed the student's documentation and agree with the findings.
== END 2021-11-07 11:20 | disposition home or self-care (01) ==
LOC: ANHED 04:12 → ANH2MED 07:14
PROVIDERS: Urology; Admitting Provider Internal Medicine; Emergency Provider Emergency Medicine; PCP Emergency Medicine; Visit Provider Nurse Practitioner Family
PROC: (CPT 52352; principal; 2021-11-06 10:45)
DX: N13.2 Hydronephrosis with renal and ureteral calculous obstruction (principal); N39.0 Urinary tract infection, site not specified; J45.909 Unspecified asthma, uncomplicated; I10 Essential (primary) hypertension; E11.9 Type 2 diabetes mellitus without complications; Z79.51 Long term (current) use of inhaled steroids; F12.90 Cannabis use, unspecified, uncomplicated
CPT/HCPCS: 52332; 52352; 36415; 74176; 74420; 80053; 81001; 82365; 82948; 83605; 83690; 85025; 85055; 87040; 87077; 87086; 87186; 88300; 96361; 96365; 96366; 96375; 99285; A9270; C1769; C1894; C2617; G0378; J0696; J1885; J2250; J2405; J2704; J3010; J7030; J7120; Q9966

== ENCOUNTER 2022-03-21 09:23 | Emergency (ER) | payer BC, OTHER, SELFPAY ==
[2022-03-21 09:34] VITALS: BP 175/76; PULSE 83; RESP 16; TEMP 36.6; O2SAT 99
--- NOTE | 2022-03-21 09:52 | ED.GENADULT ---
HPI - General Adult General Chief complaint: Extremity Problem,Nontraumatic Stated complaint: Left arm and Shoulder Time Seen by Provider: 03/21/22 09:52 Source: patient Mode of arrival: ambulatory Limitations: no limitations History of Present Illness HPI narrative: 61-year-old female presents with complaint of left shoulder pain, right thumb pain for several months. Has not seen her primary care physician for this problem. 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 Has been having difficulty taking things in and out of oven. No injury. States that she has a friend that came here and was given prednisone that helped her pain. Patient does not want x-rays today. Ambulatory with steady gait. All systems reviewed and negative except as noted above. Related Data Home Medications Medication Instructions Recorded Confirmed lisinopril 30 mg tablet 30 mg PO DAILY 11/06/21 03/21/22 Allergies Allergy/AdvReac Type Severity Reaction Status Date / Time No Known Allergies Allergy Verified 03/21/22 09:52 Review of Systems Review of Systems: CONSTITUTIONAL: Denies fever, chills, or sweats. EYES: Denies visual changes, redness, or discharge. ENT: Denies rhinorrhea, congestion, sore throat, or otalgia. CARDIOVASCULAR: Denies chest pain, palpitations, or edema. RESPIRATORY: Denies cough or dyspnea. GASTROINTESTINAL: Denies abdominal pain, nausea, vomiting, or diarrhea. GENITOURINARY: Denies dysuria or hematuria. SKIN: Denies rash or itching. MUSCULOSKELETAL: Denies back pain, myalgia. Reports left shoulder and right thumb pain. NEUROLOGIC: Denies headache, numbness, or weakness. PSYCHIATRIC: Denies anxiety or depression. All other systems reviewed are negative, except as documented in HPI. [facility] Past Medical History Medical History Asthma Diabetes Hypertension Surgical History Surgical History No pertinent past surgical history Family History Family History Father Acute myocardial infarction Grandparent Acute myocardial infarction Sibling Diabetes mellitus Grandparent Diabetes mellitus Social History Social History Smoking status: Never smoker Alcohol intake: current Drinks per week: 1 Substance use: current Substance use type: marijuana Last use: 11/05/21 Gender identity (if verbalized by the patient): Female Sexual Orientation (if Verbalized by the Patient): Straight or Heterosexual Spiritual care concerns: No Comments At time of signature, agree with nursing past medical, surgical, social and family history. There is no relevant family history pertinent to the presenting complaint. Exam Narrative: GENERAL: This is a well-nourished, well-developed patient, in no apparent distress. HEAD: normocephalic, atraumatic. EYES: PERRL. Sclera clear/white. Vision is grossly intact. EARS: External ears normal NOSE: External nose normal NECK: Neck supple, non-tender without lymphadenopathy, masses or thyromegaly. CARDIOVASCULAR: Regular rate and rhythm without murmurs, gallops, or rubs. RESPIRATORY: Clear to auscultation. Breath sounds equal bilaterally. No wheezes, rales, or rhonchi. SKIN: warm, Dry, intact with no suspicious lesions or rash, good texture and turgor. NEURO: awake, alert, and oriented to person, place and time. There were no obvious focal neurologic abnormalities. EXTREMITIES: No joint tenderness, effusion, or edema noted. Full range of motion to left shoulder. Negative left arm drop. Reports pain with passive and active range of motion. Pain to first MCP joint with slight swelling. No redness or erythema. Course Course Level of Care: Express Care Visit Vital Signs Vital signs: Vital Signs Temperature 36.6 C 03/21/22
== END 2022-03-21 10:08 | disposition home or self-care (01) ==
PROVIDERS: Emergency Provider Nurse Practitioner Family; PCP Emergency Medicine
DX: M25.512 Pain in left shoulder (principal); M79.645 Pain in left finger(s); J45.909 Unspecified asthma, uncomplicated; E11.9 Type 2 diabetes mellitus without complications; I10 Essential (primary) hypertension
CPT/HCPCS: 99213; G0463

== ENCOUNTER → 2022-04-11 10:50 | Outpatient (CLI) | payer BC, OTHER, SELFPAY ==
--- NOTE | ~2022-04-11 | XR_ITS ---
XR abdomen/kub 1V 04/11/2022 11:46 INDICATION: Right ureteral stone TECHNIQUE: KUB COMPARISON: None FINDINGS: Bowel gas pattern is normal. There is no evidence of free air, mass, organomegaly, ascites or obstruction. No abnormal calculi are seen. The bones appear intact. There are cholecystectomy c lips. IMPRESSION: 1: No acute abdominal abnormality identified. Reviewed, dictated and finalized at location A.
== END ==
PROVIDERS: PCP Emergency Medicine; Visit Provider Urology
DX: N20.1 Calculus of ureter (principal)
CPT/HCPCS: 74018

== ENCOUNTER → 2022-05-30 10:55 | Outpatient (CLI) | payer BC, OTHER, SELFPAY ==
--- NOTE | ~2022-05-30 | XR_ITS ---
XR humerus LT DATE: 05/30/2022 11:55 INDICATION: Left arm pain TECHNIQUE: AP and lateral views COMPARISON: None FINDINGS: There is osteopenia. Normal alignment at the acromioclavicular, glenohumeral and elbow joints. No left humeral fracture, dislocation, periosteal reaction or bone destruction. IMPRESSION: Osteopenia Reviewed, dictated and finalized at location B. IMPRESSION: Osteopenia
--- NOTE | ~2022-05-30 | MM_ITS ---
EXAMINATION: MM screening mitul BI w rafia HISTORY: Screening mammogram TECHNIQUE: Craniocaudal and mediolateral oblique 3-D tomosynthesis images were obtained and synthetic 2-D images were generated. CAD analysis was submitted and interpreted. COMPARISON: 11/02/2020 BREAST PARENCHYMAL COMPOSITION: There are scattered areas of fibroglandular density. FINDINGS: There is no suspicious mass, calcification, or architectural distortion to suggest malignan cy in either breast. There has been no suspicious interval change. IMPRESSION: 1. No mammographic evidence of malignancy. 2. Recommend routine screening mammography in one year. BI-RADS Category 1: Negative Reviewed, dictated and finalized at location A.
--- NOTE | ~2022-05-30 | XR_ITS ---
XR shoulder LT min 2V DATE: 05/30/2022 11:55 INDICATION: Left shoulder pain TECHNIQUE: 4 views COMPARISON: None FINDINGS: There is osteopenia. Normal alignment at the acromioclavicular and glenohumeral joints. No fracture, dislocation, perioste al reaction or bone destruction or abnormal soft tissue calcification of the left shoulder. IMPRESSION: Osteopenia Reviewed, dictated and finalized at location B. IMPRESSION: Osteopenia
--- NOTE | ~2022-05-30 | XR_ITS ---
XR hand RT min 3V DATE: 05/30/2022 11:55 INDICATION: Right thumb pain TECHNIQUE: Multiple views COMPARISON: None FINDINGS: There is mild polyarticular osteoarthritis, including first carpometacarpal and multiple me tacarpophalangeal and interphalangeal joints. There is a degenerative ossicle adjacent to the interph alangeal joint of the first digit. No fracture or dislocation, periosteal reaction or bone destruction is detected. IMPRESSION: Mild polyarticular osteoarthritis Reviewed, dictated and finalized at location B.
--- NOTE | ~2022-05-30 | XR_ITS ---
XR hip BI wo pelvis DATE: 05/30/2022 11:55 INDICATION: Right hip pain TECHNIQUE: AP and lateral views of each hip COMPARISON: None FINDINGS: The pubic symphysis and sacroiliac joints are intact. No fracture or dislocation, avascular necrosis or bone destruction of either hip is detected. There is some chronic heterotopic bone formation adjacent to the left femoral greater trochanter. Hip joint spaces are relatively well preserved bilaterally. IMPRESSION: No significant abnormality Reviewed, dictated and finalized at location B. IMPRESSION: No significant abnormality
== END ==
PROVIDERS: PCP Emergency Medicine; Visit Provider Emergency Medicine
DX: Z12.31 Encounter for screening mammogram for malignant neoplasm of breast (principal); M19.041 Primary osteoarthritis, right hand; M85.822 Other specified disorders of bone density and structure, left upper arm; M25.551 Pain in right hip; M25.512 Pain in left shoulder; M25.541 Pain in joints of right hand; M25.552 Pain in left hip
CPT/HCPCS: 73030; 73060; 73130; 73521; 77063; 77067

== ENCOUNTER → 2022-11-07 09:53 | Outpatient (CLI) | payer BC, OTHER, SELFPAY ==
--- NOTE | ~2022-11-07 | DEXA_ITS ---
Bone Density Report Name: RODRIGO JAVED Age: 62 Sex: Female Ethnicity: White Date of : 1960 Indication: postmenopausal; screening for osteoporosis; height loss; history of glucocorticoids; Referring Provider: APRIL MCLEOD Study: Bone densitometry was performed. Exam Date: November 07, 2022 Accession number: [id number] Bone Density: Region BMD T-score Z-score Classification AP Spine (L1-L4) 0.988 -0.5 1.0 Normal Femoral Neck (Left) 0.820 -0.3 1.1 Normal Total Hip (Left) 0.949 0.1 1.1 Normal Femoral Neck (Right) 0.833 -0.1 1.2 Normal Total Hip (Right) 0.926 -0.1 0.9 Normal Total Hip Mean 0.938 0.0 1.0 Normal World Health Organization criteria for BMD impression classify patients as: Normal (T-score at or above -1.0), Osteopenia (T-score between -1.0 and -2.5), or Osteoporosis (T-score at or below -2.5). 10-year Fracture Risk: FRAX not reported because: All T-scores for Spine Total, Hip Total, Femoral Neck at or above -1.0 Clinical Information Provided by Patient: Has taken Glucocorticoids Has used the following medications: Vitamin D Patient maximum height was 67 Menopause Age: 46 No regular weight bearing exercise Does not regularly consume dairy products Drinks caffeinated beverages Onset of menses at age 15 Number of children 1 Impression: The patient has normal bone mass. The patient has risk factors, including: history of glucocorticoid therapy. Discussion: BONE DENSITY IS ABOVE THE MINIMUM DESIRABLE LEVEL AT ALL SKELETAL SITES TESTED. This patient?s bone mineral density is above the minimum desirable level (T-score -1.0 or better) at all sites measured. The patient should follow a healthful lifestyle (good nutrition with adequate calcium and vitamin D, and appropriate weight-bearing exercise). Follow-Up: Consider repeating this study in 5 years or sooner if there is some new clinical indication. Reported by: MORIAH on 11/07/2022 10:43:00 AM. Reviewed, dictated and finalized at location AShad RAUSCH
== END ==
PROVIDERS: PCP Emergency Medicine; Visit Provider Emergency Medicine
DX: M85.812 Other specified disorders of bone density and structure, left shoulder (principal)
CPT/HCPCS: 77080

== ENCOUNTER → 2023-06-05 07:12 | Outpatient (CLI) | payer BC, OTHER, SELFPAY ==
--- NOTE | ~2023-06-05 | XR_ITS ---
EXAMINATION: XR chest 2V 06/05/2023 07:53 INDICATION: Cough PROCEDURE: 2 view chest COMPARISON: 08/04/2020 FINDINGS: The lungs are clear. The cardiomediastinal silhouette is within normal limits. There are no pleural effusions. There is no pneumothorax suspected. IMPRESSION: 1: NO ACUTE CARDIOPULMONARY DISEASE. Reviewed, dictated and finalized at location B.
== END ==
PROVIDERS: PCP Emergency Medicine; Visit Provider Emergency Medicine
DX: R05.9 Cough, unspecified (principal)
CPT/HCPCS: 71046

== ENCOUNTER 2023-07-16 04:06 | Emergency (ER) | payer OTHER, BC, SELFPAY ==
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
[2023-07-16 04:11] VITALS: BP 155/103; PULSE 92; RESP 20; TEMP 36.9; O2SAT 100
[2023-07-16] MEDS: TETANUS,DIPHTHERIA,AC PERTUSSIS ADULT (0.5 ML) BOOSTRIX IM (05:17)
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
== END 2023-07-16 07:06 | disposition home or self-care (01) ==
PROVIDERS: Emergency Provider Emergency Medicine; PCP Emergency Medicine
DX: S01.511A Laceration without foreign body of lip, initial encounter (principal); S16.1XXA Strain of muscle, fascia and tendon at neck level, initial encounter; Z23 Encounter for immunization; E11.9 Type 2 diabetes mellitus without complications; I10 Essential (primary) hypertension; J45.909 Unspecified asthma, uncomplicated; Z79.84 Long term (current) use of oral hypoglycemic drugs; V49.50XA Passenger injured in collision with unspecified motor vehicles in traffic accident, initial encounter
CPT/HCPCS: 12011; 70450; 70486; 72125; 90471; 90715; 99284

== ENCOUNTER 2023-07-23 12:22 | Emergency (ER) | payer OTHER, BC, SELFPAY ==
[2023-07-23 12:37] VITALS: BP 146/62; PULSE 86; RESP 18; TEMP 36.3; O2SAT 98
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
[2023-07-23 14:25] VITALS: BP 132/78; PULSE 84; RESP 16; TEMP 36.8; O2SAT 100
== END 2023-07-23 14:30 | disposition home or self-care (01) ==
PROVIDERS: Emergency Provider Physician Assistant; PCP Emergency Medicine
DX: S01.501D Unspecified open wound of lip, subsequent encounter (principal); J45.909 Unspecified asthma, uncomplicated; E11.9 Type 2 diabetes mellitus without complications; I10 Essential (primary) hypertension; Z79.84 Long term (current) use of oral hypoglycemic drugs; V49.9XXD Car occupant (driver) (passenger) injured in unspecified traffic accident, subsequent encounter
CPT/HCPCS: 15853; 99282

== ENCOUNTER → 2023-09-04 12:09 | Outpatient (CLI) | payer BC, SELFPAY ==
--- NOTE | ~2023-09-04 | MM_ITS ---
EXAMINATION: MM screening mitul BI w rafia HISTORY: Screening mammogram TECHNIQUE: Craniocaudal and mediolateral oblique 3-D tomosynthesis images were obtained and synthetic 2-D images were generated. CAD analysis was submitted and interpreted. COMPARISON: 05/30/2022, 11/02/2020 bilateral screening mammogram examinations BREAST PARENCHYMAL COMPOSITION: The breasts are almost entirely fatty. FINDINGS: There is no evidence of suspicious mass, calcification, or architectural distortion to sugg est malignancy in either breast. There has been no suspicious interval change. IMPRESSION: 1. No mammographic evidence of malignancy. 2. Recommend routine screening mammography in one year. BI-RADS Category 1: Negative Reviewed, dictated and finalized at location A. NATAL SOCIAL WORKER
== END ==
PROVIDERS: PCP Emergency Medicine; Visit Provider Emergency Medicine
DX: Z12.31 Encounter for screening mammogram for malignant neoplasm of breast (principal)
CPT/HCPCS: 77063; 77067

== ENCOUNTER 2024-12-08 09:52 | Outpatient (CLI) | payer BC, OTHER, SELFPAY ==
--- NOTE | ~2024-12-08 | XR_ITS ---
AP view of the pelvis and AP and lateral views of the right hip Clinical history: Pain Findings: No acute fracture or dislocation is seen. Osseous alignment is anatomic. Bilateral hip and SI joint spaces are preserved. Soft tissues are unremarkable. Impression: No significant abnormality is seen. Reviewed, dictated and finalized at [facility]. Impression: No significant abnormality is seen.
--- NOTE | ~2024-12-08 | XR_ITS ---
Lumbosacral Spine: AP and lateral views Clinical History: Pain Findings: The normal lordotic curve is maintained. The vertebral bodies and posterior elements are i ntact. The intervertebral disc spaces are preserved. There is advanced facet arthropathy from L4 thr ough S1. The sacroiliac joints are normally outlined. Impression: Facet arthropathy, as above. Reviewed, dictated and finalized at location . Impression: Facet arthropathy, as above.
== END 2024-12-08 09:53 | disposition home or self-care (01) ==
PROVIDERS: PCP Emergency Medicine; Visit Provider Emergency Medicine
DX: M47.817 Spondylosis without myelopathy or radiculopathy, lumbosacral region (principal); M25.561 Pain in right knee; M25.551 Pain in right hip
CPT/HCPCS: 72100; 73502; 73564

== ENCOUNTER 2025-03-02 15:08 | Outpatient (CLI) | payer BC, MEDICARE, SELFPAY ==
--- NOTE | ~2025-03-02 | MR_ITS ---
MRI of the lumbar spine Clinical History: Right lower extremity pain Technique: Axial T2-weighted images, and sagittal T1-weighted, T2-weighted, and T2 fat-sat images wer e acquired. Findings: There is no fracture or subluxation of the lumbar spine. Vertebral bodies maintain normal h eight and alignment. No bone marrow signal abnormality seen. Intervertebral discs maintain normal signal position throughout the lumbar spine. No significant disc bulge or herniation seen. There is moderate facet arthropathy from L2 through S1. No spinal canal st enosis identified in overall. There is mild bilateral neural foraminal narrowing at L4-L5, left worse than right. Remaining neural foramina are preserved. Paravertebral soft tissues are unremarkable. Impression: Mild degenerative spondylosis, as above. Reviewed, dictated and finalized at location . Impression: Mild degenerative spondylosis, as above.
== END 2025-03-02 15:09 | disposition home or self-care (01) ==
PROVIDERS: PCP Emergency Medicine; Visit Provider Neurological Surgery
DX: M47.816 Spondylosis without myelopathy or radiculopathy, lumbar region (principal)
CPT/HCPCS: 72148

== ENCOUNTER 2025-05-26 07:05 | Outpatient (CLI) | payer BC, SELFPAY ==
--- NOTE | ~2025-05-26 | MR_ITS ---
EXAMINATION: MR cervical spine wo con DATE: 05/26/2025 07:44 INDICATION: Neck pain. Left arm weakness. TECHNIQUE: Magnetic resonance imaging (MRI) of the cervical spine was performed without intravenous contrast. COMPARISON: None FINDINGS: There is mild kyphosis of cervical spine. Vertebral body heights are normal. There is mildly decreased disc height at C4-C5 and C5-C6. No spinal cord signal intensity is normal. The following disc levels are specifically discussed: C2-C3: The disc does not extend beyond the endplate margin. There is mild left uncovertebral joint osteoarthritis. There is mild bilateral facet joint osteoarthritis. There is mild left neural foraminal stenosis. There is no central canal stenosis. C3-C4: There is a central protrusion. There is mild bilateral uncovertebral joint osteoarthritis. There is severe bilateral facet joint osteoarthritis. There is mild right neural foraminal stenosis. There is mild central canal stenosis. C4-C5: The disc is bulging. There is moderate bilateral uncovertebral joint osteoarthritis. There is mild bilateral facet joint osteoarthritis. There is mild bilateral neural foraminal stenosis. There is mild central canal stenosis. C5-C6: The disc is bulging. There is severe bilateral uncovertebral joint osteoarthritis. There is mild bilateral facet joint osteoarthritis. There is moderate right and mild left neural foraminal stenosis. There is moderate central canal stenosis with ventral and dorsal indentation of the spinal cord. C6-C7: There is a central protrusion. There is mild bilateral uncovertebral joint osteoarthritis. There is mild bilateral facet joint osteoarthritis. There is no neural foraminal stenosis. There is no central canal stenosis. C7-T1: The disc does not extend beyond the endplate margin. There is no uncovertebral joint osteoarthritis. There is severe bilateral facet joint osteoarthritis. There is mild left neural foraminal stenosis. There is no central canal stenosis. IMPRESSION: 1. Moderate cervical spondylosis. Reviewed, dictated and finalized at location E.
== END 2025-05-26 07:06 | disposition home or self-care (01) ==
LOC: MICIMG 07:06
PROVIDERS: PCP Emergency Medicine; Visit Provider Neurological Surgery
DX: M48.02 Spinal stenosis, cervical region (principal); M43.02 Spondylolysis, cervical region; R29.898 Other symptoms and signs involving the musculoskeletal system
CPT/HCPCS: 72141